=== PATIENT | male | born 1995 | race Asian ===

== ENCOUNTER 2016-12-15 16:24 | Emergency (ER) | payer BC ==
[~2016-12-15] VITALS: Ht 170.2 cm; Wt 59.0 kg
[2016-12-15 16:42] VITALS: BP_SYST 125
[2016-12-15] MEDS ORDERED: DIPHENHYDRAMINE HCL 50 MG CAPSULE ONE (16:44)
[2016-12-15] MEDS ORDERED: DIPHENHYDRAMINE INJ 50 MG/ML VIAL ONE (16:44)
[2016-12-15] MEDS ORDERED: methylPREDNISolone SOD SUCC/PF 62.5 MG/ML VIAL ONE (16:45)
[2016-12-15] MEDS ORDERED: EPINEPHrine 1 MG/ML AMP ONE (16:46)
[2016-12-15] MEDS ORDERED: FAMOTIDINE PF 20 MG/2 ML VIAL IVP ONE (17:00)
[2016-12-15] MEDS ORDERED: methylPREDNISolone SOD SUCC/PF 62.5 MG/ML VIAL IVP ONE (17:15)
[2016-12-15] MEDS ORDERED: EPINEPHrine JECT 1 MG/10 ML SYR IVP ONE ×2 (17:15→18:15)
[2016-12-15] MEDS ORDERED: DIPHENHYDRAMINE INJ 50 MG/ML VIAL IVP ONE (17:15)
[2016-12-15 19:10] VITALS: BP_SYST 104
== END 2016-12-15 19:10 | disposition home or self-care (01) ==
LOC: SED 16:24
DX: T63.441A Toxic effect of venom of bees, accidental (unintentional), initial encounter (principal); L53.0 Toxic erythema; Y92.89 Other specified places as the place of occurrence of the external cause
CPT/HCPCS: 96374; 96375; 99284; J0171; J1200; J2930; J3490; Q0163